=== PATIENT | female | born 1990 | race Caucasian/White ===

== ENCOUNTER 2018-08-17 10:07 | Inpatient (IN) ==
[2018-08-17 11:20] LABS: Basophils % 0.3 %; Eosinophils # 0.1 K/mcL (0.0-0.6); Eosinophils % 0.5 %; Hematocrit 35.7 % (35.3-44.9); Hemoglobin 11.8 g/dL (11.5-15.4); Immature Granulocytes % 0.7 % (0-4); Lymphocytes # 1.6 K/mcL (0.6-4.6); Lymphocytes % 16.5 %; Mean Corpuscular HGB Conc 33.1 g/dL (31.6-35.5); Mean Corpuscular Hemoglobin 30.5 pg (28.0-33.3); Mean Corpuscular Volume 92.2 fL (83.0-100.0); Mean Platelet Volume 12.2 fL (9.4-12.4); Monocytes % 10.6 %; Platelet Count 186 K/mcL (140-400); Red Blood Count 3.87 M/mcL (3.82-4.97); Red Cell Distribution Width 14.3 % (11.5-14.5); Segmented Neutrophils % 71.4 %; White Blood Count 9.8 K/mcL (4.3-11.1)
[2018-08-17 11:28] LABS: Amphetamine Screen,Urine Negative ng/mL (Cutoff=1000); Barbiturate Screen,Urine Negative ng/mL (Cutoff=200); Benzodiazepines Screen,Urine Negative ng/mL (Cutoff=200); Cannabinoid Screen,Urine Negative ng/mL (Cutoff = 50); Cocaine Screen,Urine Negative ng/mL (Cutoff= 300); Creatinine,Urine 63 mg/dL; Opiate Screen,Urine Negative ng/mL (Cutoff=300); Phencyclidine Screen,Urine Negative ng/mL (Cutoff=25); Protein/Creatinine Ratio,Urine 0.11 mg/mg (0.00-0.20)
[2018-08-17 11:38] LABS: Alanine Aminotransferase 9 Units/L (7-52); Aspartate Amino Transferase 14 Units/L (13-39); BUN/Creatinine Ratio 13 (6-26); Blood Urea Nitrogen 9 mg/dL (6-20); Lactate Dehydrogenase 177 Units/L (140-271); Uric Acid 6.7 mg/dL (2.3-7.6); eGFR For African Americans > 60 (> 60); eGFR For Non-African Americans > 60 (> 60)
[2018-08-17] MEDS ORDERED: Ringers Solution, Lactated 1,000 ML ONE ×2 (13:10→23:01)
[2018-08-17] MEDS ORDERED: Famotidine 20 MG/2 ML VIAL IVP PRN (13:12)
[2018-08-17] MEDS ORDERED: Metoclopramide 10 MG/2 ML VIAL IVP PRN (13:12)
[2018-08-17] MEDS ORDERED: *HR* Nalbuphine 10 MG/ML AMPUL IVP PRN (13:12)
[2018-08-17] MEDS ORDERED: Naloxone 0.4 MG/ML INJ IVP PRN (13:12)
[2018-08-17] MEDS ORDERED: Ondansetron 4 MG/2 ML VIAL IVP PRN (13:12)
[2018-08-17] MEDS ORDERED: Penicillin G Potassium 5,000,000 UNIT in 0.9 % Sodium Chloride Mini Bag 100 ML IVPB ONE (13:26)
--- NOTE | 2018-08-17 13:36 | Anesthesia Evaluation PreOp ---
Date of Encounter: 08/17/18 Time of Encounter: 13:35 - Past History Planned Operation: DUGLAS Cardiac History: Denies any Significant Hx Pulmonary History: Asthma SIZE CUTTER History: Denies Any Significant HX Other Medical History: Denies Any Significant HX Anesthesia History: No Prior Anesthetic Complications, Past Anesthesia : Yes (39.1) Alcohol Use: none Drug use: none Medications and Allergies Albuterol Sulfate [Proair Hfa] 2 puff Q4HR PRN 08/17/18 [History] Fluticasone Propionate Nasal [Flonase] 50 mcg NS SARAH 08/17/18 [History] Loratadine [Claritin] 10 mg PO DAILY 08/17/18 [History] Pnv,Calcium 72/Iron/Folic Acid [ Plus Tablet] 08/17/18 [History] Allergy/AdvReac Type Severity Reaction Status Date / Time No Known Allergies Allergy Verified 08/17/18 13:16 - Meds/Allergy Pre-op Review Medications Reviewed: Yes Allergies Reviewed: Yes Beta Blockers on Current Med List: No Anesthesia Results - Labs 08/17/18 11:02 08/17/18 11:02 Anesthesia Exam Vital Signs Pulse BP 86 139/90 08/17/18 10:40 08/17/18 10:40 NPO (# of Hours): 4 Pain Scale: 1 Pain Scale Used: Numeric (1 - 10) - HEENT Pupil (Motor): Pupils equal Mallampati: II Teeth: Normal Oral Opening: Greater than 3 - SIZE CUTTER LOC: Oriented SIZE CUTTER Motor: Normal RUE, Normal LUE, Normal RLE, Normal LLE, Normal Face SIZE CUTTER Sensory: Normal: RUE, LUE, RLE, LLE, Face - Cardiac Rhythm: Regular Murmur: None JVD: No Carotid Bruit: No - Pulmonary Breath Sounds: bilateral Clear Respiratory Effort: Symmetrical Anesthesia Assess/Plan ASA Score: 2 Level of consciousness: Cooperative, Oriented Anesthetic Plan: General, Epidural Autologous Blood: Yes Monitoring Plan: Standard Monitors
[2018-08-17] MEDS: Oxytocin 20 units/ LR 1000 mL 20 UNIT/1,000 ML BAG IVC SCH (13:38)
--- NOTE | 2018-08-17 14:10 | OB/GYN History & Physical ---
Date of Encounter: 08/17/18 Time of Encounter: 14:06 Assessment and Plan (1) 39 weeks gestation of Current visit: Yes Status: Acute (2) GBS (group B Streptococcus carrier), +RV culture, currently Current visit: Yes Status: Acute PCN IV as ordered History of Present Illness Chief complaint: arrived in the office for appointment and sent for induction HPI: Ms. Smith is a 28 year old female G 1 PO at 39 1/7 weeks admitted to labor and delivery after having elevated blood pressures in the office and in triage. She denies headaches, visual changes, or RUQ pain. She reports good movement and states her contractions are more like cramping pain. She had all normal pre- e labs today. Discussion with the patient regarding her BP's of 130-140/80-90 are still mostly in normal range, but she was running 110/70 throughout her . She has already progressed to 39 weeks and I feel induction of labor is indicated to try and prevent worsening blood pressures. She is agreeable to induction today. Past Med Surg Social Fam HX - Past Medical History Source: patient, old records reviewed Medical history: asthma, other Additional medical history: TMJ Psychiatric history: no psych history - Past Surgical History Surgical History: other (adenoids, wisdom teeth, ear tubes) Additional surgical history: wisdom teeth extraction under light sedation. adnoids at appx 8-10 years of age - Social History Smoking Status: Never smoker Alcohol use: none Drug use: none Occupational status: employed ([employer]arm [employer]) Current living situation: Home - Independent Activity Level: Independent ambulation - Family History Mother History Unknown: Yes Hx Family Cardiac Disorders: Yes (HTN) Obstetrical History - Pregnancies : 1 Medications and Allergies Albuterol Sulfate [Proair Hfa] 2 puff Q4HR PRN 08/17/18 [History] Fluticasone Propionate Nasal [Flonase] 50 mcg NS SARAH 08/17/18 [History] Loratadine [Claritin] 10 mg PO DAILY 08/17/18 [History] Pnv,Calcium 72/Iron/Folic Acid [ Plus Tablet] 08/17/18 [History] Allergy/AdvReac Type Severity Reaction Status Date / Time No Known Allergies Allergy Verified 08/17/18 13:16 Review of System OB All systems PM: reviewed and no additional remarkable complaints except as stated Exam - Vital Signs Vital signs: Initial Vital Signs Pulse BP 86 139/90 08/17/18 10:40 08/17/18 10:40 - Constitutional Constitutional: well developed, well nourished, no acute distress, average body habitus - HEENT HEENT: EOMI - Neck Neck exam: full ROM - Lungs Respiratory exam: CTAB - Cardiovascular Cardiovascular exam: RRR - Abdomen Abdomen: Present: bowel sounds normal, gravid, non tender - Extremities Extremities exam: pedal edema - Vulva Vulva: bilateral: normal - Vagina Vagina: Present: normal moisture - Cervix Dilation: 1 Effacement: 80 Station: -2 - Anus/Rectum Anus/Rectum: Present: normal perianal skin - Comments Comments: Ultrasound on 08/02 showed AGA fetus with adequate fluid in vertex presentation FHTs baseline 135, category 1 Cook smith placed without difficulty. 40 ml uterine and 30 ml vaginal. Begin pitocin EFM in anticipation of vaginal delivery Results Result Diagrams: 08/17/18 11:02 08/17/18 11:02 All other labs normal. - VTE Reasons for not Prescribing Prophylaxis: Treatment not Indicated - Low risk for VTE
[2018-08-17] MEDS ORDERED: Epidural Premix (fent/bupiv) 110 ML EP SCH (15:45)
[2018-08-17] MEDS: Penicillin G Potassium 2,500,000 UNIT in 0.9 % Sodium Chloride 100 ML IVPB SCH ×2 (18:04→22:15)
--- NOTE | 2018-08-17 22:29 | OB Labor Progress Note ---
Date of Encounter: 08/17/18 Time of Encounter: 22:26 Labor Progress Note - Subjective Subjective: Patient denies any complaints at this time. She reports her pain is 2/10 with contractions. - Cervix Cervix: 4.5/90/-2 cephalic - Heart Tones Heart Tones: category 1 with baseline 135 - [place]: q 1-3 minutes with pitocin at 14 mUnits/minute - Interventions Interventions: SVE and Cook catheter palpated distal to the cervix and removed intact. Upon cervical exam SROM with moderate amount of clear fluid. IUPC placed without difficulty - Plan Plan: Continue pitocin induction with PCN for GBS prophylaxis in anticipation of vaginal delivery
--- NOTE | 2018-08-17 23:34 | Anesthesia Procedures ---
Date of Encounter: 08/17/18 Time of Encounter: 23:32 Procedures: Anesthesia - Epidural/Spinal Patient ID/Chart reviewed: Yes Patient examined: Yes OB Eval: Gestational age: 39.1 OB Eval: : 1 OB Eval: Hx Para: 0 OB Eval: Dilated at (cm): 5 OB Eval: Contractions: Non-stressed pattern Consent Obtained: Yes Supplemental Oxygen: None/Room Air Site Prep: Aseptic Technique, Sterile prep and drape, Povidone-Iodine 1% Patient position: upright Local Anesthetic: Lidocaine 1% Amount of Local Anesthetic used: 3 Touhy Needle Gauge: 18 Touhy Needle Depth (cm): 9 Catheter Depth at Skin (cm): 20 Test Dose (1.5% Lido + Epi): Volume given (mls): 5 Test Dose Result: Negative Loading Dose: Other: 10mls of epidural pharm bag Loading Dose Administered: Thru Catheter Infusion Med: 0.125% Bupivacaine w/ 2 mcg/ml Fentanyl Infusion Rate (mls/hr): 14 ([id number]) Catheter Secured in Place: Tegaderm, Tape Interspace Used: L4-L5 Loss of Resistance (HUGO): Yes Blood: No CSF: No Paresthesia: No Procedure: pt tolerated procedure well. no complications. vss. fhr stable.
[2018-08-18] MEDS: Penicillin G Potassium 2,500,000 UNIT in 0.9 % Sodium Chloride 100 ML IVPB SCH ×2 (02:26→07:20)
[2018-08-18] MEDS ORDERED: Ringers Solution, Lactated 1,000 ML ONE (03:33)
[2018-08-18] MEDS ORDERED: Saline Nasal Spray 44 ML BOTTLE NS PRN (07:14)
[2018-08-18] MEDS: Oxytocin 20 units/ LR 1000 mL 20 UNIT/1,000 ML BAG IVC SCH (07:20)
--- NOTE | 2018-08-18 08:57 | OB/GYN Procedure Note ---
Delivery - Delivery Date: 08/18/18 Provider: Katherine Tipton Intrapartum events: none Delivery induction: oxytocin, smith Delivery augmentation: rupture of membranes Delivery monitor: external FHT, external uterine, internal uterine Anesthesia: epidural Quantitated Blood Loss: 400 - (s) Infant A Delivery Date: 08/18/18 Delivery Time: 07:49 Presentation: vertex Position: NAYANA Gender: Female Viability: Viable Pounds: 7 Ounces: 14 Weight Gram: 3.585 kg at 1 minute: 8 at 5 mins: 9 Shoulder Dystocia: not encountered Specimens collected: cord blood Placenta: partial extraction Cord: nuchal cord, 3 umbilical vessels, delivered through nuchal - Repair Episiotomy: none Laceration Description: Perineal - 2nd Degree - Complications Delivery complications: none Delivery comments: Called to room with patient complete and +2 station. Under maternal effort she delivered a viable female weighing 7 lbs. 14 oz. and Apgars 8 and 9 at one and 5 minutes respectively over second-degree perineal laceration. Following the delivery of the head there was a loose nuchal cord noted that she delivered through. There is no shortness dystocia encountered. Following delivery of the body the was placed on mom's abdomen and cord was allowed to cease pulsations. The cord was double clamped and cut with assistance from the father. Cord blood was collected. Second-degree perineal laceration was repaired in usual fashion using 2-0 and 3-0 Vicryl. After 30 minutes of uterine involution the placenta had still not delivered and was partially extracted from the upper vagina. The placentas and examined and found to be complete and intact with an accessory lobe noted. The placenta will be sent to pathology for review. The second-degree laceration was then re-repaired using 3-0 Vicryl and hemostasis was assured. Uterine bleeding is minimal at this time. Mother and are recovering in the LDR in stable condition. - Disposition Mom disposition: stable in LDR Ira disposition: stable in LDR
[2018-08-18] MEDS ORDERED: Prenatal Vit/FA 1 EACH TABLET PO SCH (11:19)
[2018-08-18] MEDS ORDERED: Fluticasone Propionate Nasal 50 MCG/SPRAY BOTTLE NS SCH (11:19)
[2018-08-18] MEDS ORDERED: Oxytocin 20 units/ LR 1000 mL 20 UNIT/1,000 ML BAG IVC SCH (11:19)
[2018-08-18] MEDS ORDERED: Oxytocin 20 units/ LR 1000 mL 20 UNIT/1,000 ML BAG IVC ONE (11:19)
[2018-08-18] MEDS ORDERED: Loratadine 10 MG TABLET PO SCH (11:19)
[2018-08-18] MEDS: Acetaminophen 325 MG TABLET PO PRN ×2 (16:13→23:46)
[2018-08-18] MEDS: Ibuprofen 600 MG TABLET PO PRN ×2 (18:00→23:46)
--- NOTE | 2018-08-19 08:18 | Discharge Summary ---
Date of Encounter: 08/19/18 Time of Encounter: 08:16 - Discharge Diagnosis (1) Vaginal delivery Priority: Primary Status: Acute Comments: S/P Vaginal Delivery Day 1 pain is well controlled lochia is light and without clots Tolerating regular diet Passing flatus and voiding without difficulty Breast feeding Discharge home today POC per consult with Dr Baird - Discharge Medications Prescriptions: New Breast Pump [BREAST PUMP] 1 each .ROUTE AD #1 each Docusate [Colace] 100 mg PO BID capsule Ibuprofen [Motrin] 600 mg PO Q6HR PRN #30 tablet PRN Reason: Cramping Acetaminophen [Tylenol] 650 mg PO Q6HR PRN tablet PRN Reason: Mild Pain Continued Pnv,Calcium 72/Iron/Folic Acid [ Plus Tablet] Fluticasone Propionate Nasal [Flonase] 50 mcg NS SARAH Loratadine [Claritin] 10 mg PO DAILY Albuterol Sulfate [Proair Hfa] 2 puff Q4HR PRN PRN Reason: wheezing Home Medications: Albuterol Sulfate [Proair Hfa] 2 puff Q4HR PRN 08/17/18 [History] Fluticasone Propionate Nasal [Flonase] 50 mcg NS SARAH 08/17/18 [History] Loratadine [Claritin] 10 mg PO DAILY 08/17/18 [History] Pnv,Calcium 72/Iron/Folic Acid [ Plus Tablet] 08/17/18 [History] Acetaminophen [Tylenol] 650 mg PO Q6HR PRN tablet 08/19/18 [Rx] Breast Pump [BREAST PUMP] 1 each .ROUTE AD #1 each 08/19/18 [Rx] Docusate [Colace] 100 mg PO BID capsule 08/19/18 [Rx] Ibuprofen [Motrin] 600 mg PO Q6HR PRN #30 tablet 08/19/18 [Rx] Allergies/Adverse Reactions: Allergy/AdvReac Type Severity Reaction Status Date / Time No Known Allergies Allergy Verified 08/17/18 13:16 Data Procedures and tests throughout hospitalization: Laboratory Tests 08/17/18 08/17/18 08/17/18 11:02 11:02 11:02 WBC 9.8 RBC 3.87 Hgb 11.8 Hct 35.7 MCV 92.2 MCH 30.5 MCHC 33.1 RDW 14.3 Plt Count 186 MPV 12.2 Immature Gran % 0.7 Seg Neutrophils % 71.4 Lymphocytes % 16.5 Monocytes % 10.6 Eosinophils % 0.5 Basophils % 0.3 Neutrophils # 7.0 Lymphocytes # 1.6 Monocytes # 1.0 Eosinophils # 0.1 Basophils # 0.0 BUN 9 Creatinine 0.72 Est GFR ( Amer) > 60 Est GFR (Non-Af Amer) > 60 BUN/Creatinine Ratio 13 Uric Acid 6.7 AST 14 ALT 9 Lactate Dehydrogenase 177 Urine Creatinine 63 Protein/Creatinin Ratio 0.11 Urine Total Protein 7 Urine Opiates Screen Negative Ur Buprenorphine Scrn Negative Ur Barbiturates Screen Negative Ur Phencyclidine Scrn Negative Ur Amphetamines Screen Negative U Benzodiazepines Scrn Negative Urine Cocaine Screen Negative U Marijuana (THC) Screen Negative Ur Drug Screen Interp See Below Date of admission: 08/17/18 10:07 Primary care physician: ERICA Quinn Consults: 08/18/18 11:19 Consult to [employer]er [CONS] Routine Comment: Vaginal delivery, consult needed Discharging clinician: Shazia Senior Anticipated date of discharge: 08/19/18 - Patient Status Disposition: Home, Self-Care Condition: Good Functional capacity at discharge: independent ambulation Overall status at discharge: patient is progressing back to baseline - Discharge Instructions Follow Up With: Nadege Dobbs, [place] [Primary Care Provider] - Katherine Tipton DO [Partnered Physician] - - Diet and Activity Activity: increase activity as tolerated Diet: regular diet Hospital Course Reason for admission: induction of labor Delivery: Episiotomy: none Laceration: 2nd degree Other procedures: none complications: none Discharge diagnosis: IUP at term delivered baby: female Time Attestation: Total time spent providing and/or coordinating discharge services: Time Spent: Less than 30 minutes Exam - Constitutional Vitals: Temp Pulse Resp BP Pulse Ox 97.7 F 72 18 123/77 98 08/19/18 04:00 08/19/18 04:00 08/19/18 04:00 08/19/18 04:00 08/19/18 04:00 General appearance IM: cooperative, A&O X 3, pleasant - Respiratory Respiratory exam: Present: CTAB - Cardiovascular Cardiovascular exam IM: Present: RRR, +S1, +S2 - GI/Abdominal GI/Abdominal exam IM: normal bowel sounds, soft - Rectal Rectal exam: deferred - Uterine Tone: Firm Uterus Position: At Umbilicus, Midline - Extremities Exam Extremities exam IM: Present: normal capillary refill, normal inspection, radial pulses palpable and symmetrical - Neurological Exam Neurological exam: alert, oriented X3, reflexes normal
[2018-08-19] MEDS: Ibuprofen 600 MG TABLET PO PRN (08:37)
[2018-08-19 09:04] VITALS: BP 125/70
== END 2018-08-19 12:16 | disposition home or self-care (01) | DRG 807 ==
LOC: 1NENULAB → OBSVTOIN 10:07 → 1NENUOBS 08-18 11:42
PROVIDERS: ADMIT Obstetrics & Gynecology; ATTEND Obstetrics & Gynecology

== ENCOUNTER 2021-06-19 05:38 | Inpatient (IN) ==
[2021-06-19] MEDS ORDERED: Metoclopramide 10 MG/2 ML VIAL IVP PRN (06:08)
[2021-06-19] MEDS ORDERED: Penicillin G Potassium 5,000,000 UNIT in 0.9 % Sodium Chloride Mini Bag 100 ML IVPB ONE (06:08)
[2021-06-19] MEDS ORDERED: *HR* Nalbuphine 10 MG/ML AMPUL IV PRN (06:08)
[2021-06-19] MEDS ORDERED: Azithromycin 500 MG in 0.9 % Sodium Chloride 250 ML IVPB PRN (06:08)
[2021-06-19] MEDS ORDERED: Famotidine 20 MG/2 ML VIAL IVP PRN (06:08)
[2021-06-19] MEDS ORDERED: Naloxone 0.4 MG/ML INJ IVP PRN (06:08)
[2021-06-19] MEDS ORDERED: miSOPROStoL 25 MCG TABLET PO PRN (06:08)
[2021-06-19] MEDS ORDERED: Ondansetron 4 MG/2 ML VIAL IVP PRN (06:08)
[2021-06-19] MEDS ORDERED: Oxytocin 30 UNIT/503 ML BAG IVC SCH (06:15)
[2021-06-19 06:57] LABS: Basophils # 0.1 K/mcL (0.0-0.2); Basophils % 0.5 %; Eosinophils # 0.1 K/mcL (0.0-0.6); Eosinophils % 1.5 %; Hematocrit 37.3 % (35.3-44.9); Hemoglobin 12.3 g/dL (11.5-15.4); Immature Granulocytes % 1.3 % (0-4); Lymphocytes # 1.6 K/mcL (0.6-4.6); Lymphocytes % 16.7 %; Mean Corpuscular Hemoglobin 29.9 pg (28.0-33.3); Mean Corpuscular Volume 90.5 fL (83.0-100.0); Mean Platelet Volume 11.8 fL (9.4-12.4); Monocytes % 10.8 %; Neutrophils # 6.5 K/mcL (1.6-8.9); Platelet Count 223 K/mcL (140-400); Red Blood Count 4.12 M/mcL (3.82-4.97); Segmented Neutrophils % 69.2 %; White Blood Count 9.4 K/mcL (4.3-11.1)
[2021-06-19 07:34] LABS: Influenza A PCR Negative (Negative); Influenza B PCR Negative (Negative); Resp. Syncytial Virus PCR Negative (Negative)
[2021-06-19 07:50] LABS: SARS-CoV-2 by PCR (In House) Negative (Negative)
[2021-06-19] MEDS: Ringers Solution, Lactated 1,000 ML IVC SCH ×2 (08:02→17:26)
[2021-06-19] MEDS ORDERED: Loratadine 10 MG TABLET PO SCH (09:00)
[2021-06-19 09:17] LABS: Amphetamine Screen,Urine Negative ng/mL (Cutoff=1000); Barbiturate Screen,Urine Negative ng/mL (Cutoff=200); Benzodiazepines Screen,Urine Negative ng/mL (Cutoff=200); Cannabinoid Screen,Urine Negative ng/mL (Cutoff = 50); Cocaine Screen,Urine Negative ng/mL (Cutoff= 300); Opiate Screen,Urine Negative ng/mL (Cutoff=300); Phencyclidine Screen,Urine Negative ng/mL (Cutoff=25)
[2021-06-19] MEDS ORDERED: Ropivacaine/PF 0.2% 20 ML VIAL EP ONE (09:43)
[2021-06-19] MEDS ORDERED: *HR* FentaNYL (PF) 100 MCG/2 ML VIAL EP ONE (09:43)
[2021-06-19] MEDS ORDERED: EPHEDrine 50 MG/ML VIAL IVP PRN (09:43)
[2021-06-19] MEDS ORDERED: Epidural Premix (fent/bupiv) 110 ML EP SCH (09:45)
[2021-06-19] MEDS: Penicillin G Potassium 2,500,000 UNIT/105 ML MLS IVPB SCH ×2 (12:09→17:24)
[2021-06-19] MEDS ORDERED: EPHEDrine 50 MG/ML VIAL ONE (13:43)
[2021-06-19] MEDS ORDERED: Ropivacaine/PF 0.2% 20 ML VIAL ONE (18:57)
[2021-06-19] MEDS ORDERED: *HR* FentaNYL (PF) 100 MCG/2 ML VIAL ONE (18:57)
[2021-06-20] MEDS ORDERED: Benzocaine/Menthol 56 GM AEROSOL SPRAY TP PRN (00:38)
[2021-06-20] MEDS ORDERED: Oxytocin 30 UNIT/503 ML BAG IVC SCH (00:38)
[2021-06-20] MEDS ORDERED: Lanolin 7 G OINT...G. TP PRN (00:38)
[2021-06-20] MEDS ORDERED: OXYTOCIN/RINGERS LACTATE 10 UNIT/166.6 ML BAG IVC ONE (00:38)
[2021-06-20] MEDS ORDERED: Ondansetron ODT 4 MG TAB.RAPDIS SL PRN (00:38)
[2021-06-20] MEDS: Acetaminophen 325 MG TABLET PO SCH ×4 (01:36→20:49)
[2021-06-20] MEDS: Ibuprofen 600 MG TABLET PO SCH ×4 (01:36→20:49)
[2021-06-20] MEDS: Prenatal Vit/FA 1 EACH TABLET PO SCH (08:48)
[2021-06-20] MEDS: Loratadine 10 MG TABLET PO SCH (13:20)
[2021-06-21 01:59] VITALS: O2SAT 98
[2021-06-21] MEDS: Ibuprofen 600 MG TABLET PO SCH (03:57)
[2021-06-21] MEDS: Acetaminophen 325 MG TABLET PO SCH (03:57)
[2021-06-21 07:42] VITALS: BP 111/64; PULSE 63; TEMP 98.8
[2021-06-21] MEDS: Prenatal Vit/FA 1 EACH TABLET PO SCH (08:07)
[2021-06-21] MEDS: Loratadine 10 MG TABLET PO SCH (08:07)
[2021-06-21] MEDS ORDERED: Loratadine 10 MG TABLET PO SCH (09:00)
== END 2021-06-21 11:00 | disposition home or self-care (01) | DRG 807 ==
LOC: 1NENULAB 05:38 → 1NENUOBS 06-20 00:50
PROVIDERS: ADMIT Obstetrics & Gynecology; ATTEND Obstetrics & Gynecology